=== PATIENT | female | born 1955 | race Caucasian/White ===

== ENCOUNTER → 2019-08-03 11:38 | Outpatient (CLI) | payer BC, SELFPAY ==
[2019-08-03 12:32] LABS: Add Manual Diff / Slide Review NO; Basophils Absolute Auto 0 /uL (0-100); Basophils Percent Auto 1.3 % (0-2); Eosinophils Absolute Auto 100 /uL (0-450); Eosinophils Percent Auto 1.6 % (2-4); Hematocrit 38.8 % (36-46); Hemoglobin 13.3 g/dL (12.0-16.0); Lymphocytes Absolute Auto 1300 /uL (1100-4500); Lymphocytes Percent Auto 38.1 % (25-40); Mean Corpuscular HGB Conc 34.4 % (30-36); Mean Corpuscular Hemoglobin 30.4 PG (26-34); Mean Corpuscular Volume 88.5 fL (80-100); Monocytes Absolute Auto 200 /uL (0-900); Monocytes Percent Auto 6.1 % (3-14); Neutrophils Absolute Auto 1900 /uL (1500-7000); Neutrophils Percent Auto 52.9 % (50-75); Platelet Count 235 X10^3/uL (150-400); Red Blood Cell Count 4.38 X10^6/uL (4.0-5.2); White Blood Cell Count 3.5 X10^3/uL (4.5-11.0)
[2019-08-03 12:45] LABS: Alanine Aminotransferase 22 IU/L (<35); Albumin 4.3 g/dL (3.5-5.0); Albumin Globulin Ratio 1.5 (1.0-2.8); Alkaline Phosphatase 69 U/L (38-126); Aspartate Aminotransferase 29 IU/L (14-36); BUN Creatinine Ratio 18.3 (6-22); Bilirubin Total 0.4 mg/dL (0.2-1.3); Blood Urea Nitrogen 11 mg/dL (7-17); Carbon Dioxide 25 mmol/L (22-32); Chloride 102 mmol/L (98-107); Cholesterol 216 mg/dL (140-199); Estimated Glomerular Filt Rate > 60.0 mL/min (>60); Globulin 2.8 g/dL (1.7-4.1); Glucose 81 mg/dL (80-110); HDL Cholesterol 68 mg/dL (40-60); HEMOLYSIS < 15 (0-50); LDL Cholesterol Calculated 134 mg/dL (<100); Potassium 4.3 mmol/L (3.4-5.1); Sodium 137 mmol/L (137-145); Total Protein 7.1 g/dL (6.3-8.2); Triglycerides 68 mg/dL (35-150)
[2019-08-03 13:08] LABS: Free T4, Direct Thyroxine 0.72 ng/dL (0.78-2.19)
[2019-08-03 13:34] LABS: Vitamin B12 452 pg/mL (239-931)
[2019-08-03 15:20] LABS: Vitamin D 25 Hydroxy (D3) 38.4 ng/mL (30.0-100.0)
== END ==
PROVIDERS: PCP Family Medicine; Visit Provider Family Medicine
DX: R10.9 Unspecified abdominal pain (principal); Z12.11 Encounter for screening for malignant neoplasm of colon; Z12.39 Encounter for other screening for malignant neoplasm of breast; Z12.4 Encounter for screening for malignant neoplasm of cervix; Z13.0 Encounter for screening for diseases of the blood and blood-forming organs and certain disorders involving the immune mechanism; Z13.220 Encounter for screening for lipoid disorders; Z13.29 Encounter for screening for other suspected endocrine disorder
CPT/HCPCS: 36415; 80053; 80061; 82306; 82607; 84439; 85025

== ENCOUNTER → 2020-01-07 09:17 | Outpatient (CLI) | payer BC, SELFPAY ==
[2020-01-08 08:47] LABS: COVID19 Sendout Not Detected (Not Detect)
== END ==
PROVIDERS: PCP Family Medicine; Visit Provider Physician Assistant
DX: Z01.812 Encounter for preprocedural laboratory examination (principal)
CPT/HCPCS: 87635

== ENCOUNTER 2020-01-09 09:25 | Day surgery (SDC) | payer BC, SELFPAY ==
--- NOTE | 2020-01-09 | PATH_ITS ---
[facility] Accession Number: [id number] . 01 Material submitted: . colon - ASCENDING COLON POLYP . 02 Diagnosis: Ascending Colon Polyp, Biopsy: Tubular adenoma. MRV 01/11/2020 1148 Local . 02 Electronically signed: . Flor Cortez MD, Pathologist NPI- [id number] . 01 Gross description: . ASCENDING COLON POLYP: Received in formalin is 1 fragment(s) of chavez, soft tissue measuring 0.3 x 0.3 x 0.2 cm submitted entirely in 1 cassette(s) /JUAN R 01/10/2020 1834 Local . 02 Pathologist provided ICD-10: D12.2 . 02 CPT . 837760 Performed at: 01 [facility] [address] [id number] MD Avila Mendoza MD Phone: [phone] Performed at: 02 [facility] [address] [place], [place] [id number] MD Flor Cortez MD Phone: [phone]
[2020-01-09] MEDS: LACTATED RINGERS 1,000 ML 200 ML IV (10:01)
[2020-01-09 10:02] VITALS: BMI 28.3
--- NOTE | 2020-01-09 10:25 | PM.HP.1 ---
History of Present Illness History of Present Illness Date Patient Seen: 01/09/20 Time Patient Seen: 10:08 Chief complaint: [id number] Narrative: The patient is a woman here for screening colonoscopy. Her last exam was little over 10 years ago. No family history colon cancer. Patient History Medical History Actinic keratoses (Acute) Acute neck pain (Acute) Ankle pain (Chronic ~2019) Cervical somatic dysfunction (Acute) Chicken pox (Resolved ~1962) Chronic left hip pain (Acute) Chronic pain of left ankle (Acute) Degenerative joint disease (DJD) of lumbar spine (Acute ~1999) Epigastric pain (Acute) Hay fever (Acute) Hearing loss (Chronic) Herpes (Acute ~2011) Iliotibial band syndrome affecting left lower leg (Acute) Low back pain potentially associated with radiculopathy (Acute) Numbness of right lower extremity (Acute) Onychomycosis (Acute) Pelvic somatic dysfunction (Acute) Segmental and somatic dysfunction of lumbar region (Acute) Segmental and somatic dysfunction of thoracic region (Acute) Shoulder pain (Chronic ~2014) Solar lentigo (Acute) Somatic dysfunction of abdominal region (Acute) Somatic dysfunction of lower extremity (Acute) Somatic dysfunction of rib (Acute) Somatic dysfunction of sacral spine (Acute) Vision disorder (Chronic) Surgical History History of colonoscopy (Acute ~2008) Family & Social History Family History Father Cancer Congestive heart failure Diabetes mellitus Hyperlipidemia Hypertension Mother Congestive heart failure Diabetes mellitus Hypertension Hyperlipidemia Brother Stroke Lymphedema Diabetes mellitus History of heart disease Hyperlipidemia Hypertension Sister Morbidly obese Thyroid condition Grandfather History of heart disease Grandfather History of heart disease Hypertension Hyperlipidemia Grandmother Cancer Social History: household members none Tobacco & Substance use: Smoking Status Former smoker alcohol intake current alcohol intake frequency a few times a week Substance Use Type does not use Meds Home Medications and Allergies Home Medications Medication Instructions Recorded Confirmed Type peg 3350-electrolytes 236 240 ml PO Q10M #4000 ml 01/02/20 01/09/20 Rx gram-22.74 gram-6.74 gram-5.86 gram solution Probiotic PO DAILY 01/09/20 History colostrum, bovine 500 mg PO DAILY 01/09/20 01/09/20 History multivitamin 1 tab PO DAILY 01/09/20 01/09/20 History Allergies Allergy/AdvReac Type Severity Reaction Status Date / Time ibuprofen Allergy Mild anaphylacti Verified 01/09/20 09:50 c Review of Systems Review of Systems Narrative: Chronic low back pain ROS: Yes All systems reviewed with the patient and are negative except as otherwise documented Exam Narrative Exam Narrative: Cooperative no apparent distress. Eyes nonicteric. Lungs are clear to auscultation without rales or rhonchi. Heart regular rate and rhythm without murmur gallop. Abdomen is flat soft nontender. She has a palpable mass in the area of her aorta but no bruit in it. I can hear her pulse go through it however. There is no turbulence appreciated though it, that is a bruit. Patient is alert and oriented x3. Assessment & Plan Assessment & Plan narrative: Patient is here for screening colonoscopy. I have discussed the procedure and the rationale with the patient including risks of bleeding, perforation which would necessitate a major operation, failure to find remove all lesions and the potential to tattoo. They appeared to understand and wished to proceed.
--- NOTE | 2020-01-09 10:36 | PM.PREOP ---
Pre-operative Note COVID-19 COVID-19 status: Negative Result date/Date tested (Pos, Neg/Pending): 01/07/20 Interval Note History & Physical reviewed/Exam performed by Physician: Yes Changes to H&P: No ASA Class (for procedural sedation): I
--- NOTE | 2020-01-09 11:05 | P.OP.ENDO_ITS ---
Operative Date/Time/Diagnoses Date of procedure: 01/09/20 Time of procedure: 11:05 Pre-op diagnosis: Screening examination. Last exam about 10 years ago. Post-op diagnosis: same (Small polyp in the ascending colon. Biopsied and removed.) Procedure & Clinicians Study performed: Colonoscopy with cold biopsy Same procedure as scheduled: Yes Indications: Screening for colon cancer Surgeon: Sohail Mueller Procedure Notes SCOAP/Timeout: Perform Procedure in detail: The patient was placed in the left lateral decubitus position and underwent IV sedation directed by the surgeon consisting of fentanyl and Versed. Digital exam was unremarkable. The scope was inserted and advanced through the rectum into the sigmoid, descending, transverse, and ascending colon. Her sigmoid was rather tortuous and there were some diver ticuli noted.. The cecum was reached identified by the ileocecal valve and the appendiceal opening. The scope was gradually brought out. One Polyp was found at the ascending colon near the flexure. It was tiny and was biopsied and removed. No other lesions were seen.. The scope ultimately was retroflexed in the rectum. The appearance was remarkable for some small hemorrhoids without ulceration. The scope was removed and the patient tolerated the procedure well. The prep was good. Scope withdrawal time: 9 minutes(10 total) Sedation minutes: 27 Findings: diverticulosis (Sigmoid), internal hemorrhoids (One small hemorrhoids seen. Do not recommend treatment unless it becomes problematic.) and polyp (One tiny ascending colon polyp) Specimen(s): other (Polyp) Complications: none Post-procedure Recommendations: Colonscopy in 5 years (Unless the polyp is not neoplastic(not adenomatous) in which case 10 years would be more appropriate for screening purposes.) Follow up: as needed Disposition: PACU
[2020-01-09] MEDS: MIDAZOLAM 5 MG/5 ML VIAL IV (11:07)
[2020-01-09] MEDS: fentaNYL 250 MCG/5 ML INJ IV (11:08)
[2020-01-09 11:13] VITALS: BP 111/67; PULSE 57; RESP 16; TEMP 36.2; O2SAT 97
[2020-01-09 11:18] VITALS: BP 111/70; PULSE 58; RESP 16; O2SAT 97
[2020-01-09 11:23] VITALS: BP 118/71; PULSE 55; RESP 18; O2SAT 97
[2020-01-09 11:30] VITALS: BP 123/79; PULSE 63; RESP 19; TEMP 36.3; O2SAT 98
[2020-01-09 11:37] VITALS: BP 116/74; PULSE 58; RESP 12; O2SAT 96
[2020-01-09 11:59] VITALS: BP 132/80; PULSE 62; RESP 15; TEMP 36.6; O2SAT 98
== END 2020-01-09 12:05 | disposition home or self-care (01) ==
PROVIDERS: PCP Family Medicine; Referring Provider Specialist; Visit Provider Specialist
PROC: 0DJD8ZZ Inspection of Lower Intestinal Tract, Via Natural or Artificial Opening Endoscopic (ICD-10-PCS; CPT 45378; principal; 2020-01-09 10:45)
DX: Z12.11 Encounter for screening for malignant neoplasm of colon (principal); K64.8 Other hemorrhoids; K57.30 Diverticulosis of large intestine without perforation or abscess without bleeding; D12.2 Benign neoplasm of ascending colon
CPT/HCPCS: 45380; 99152; 99153; J2250; J3010

== ENCOUNTER → 2020-01-10 09:17 | Outpatient (CLI) | payer BC, SELFPAY ==
--- NOTE | 2020-01-10 09:18 | DI.US.S_ITS ---
PROCEDURE: US ABD AORTA ANEURYSM SCREEN INDICATIONS: AAA SCREENING TECHNIQUE: Real time scanning was performed of the aorta and iliac arteries, with image documentation. COMPARISON: None. FINDINGS: Aorta: Proximal aortic diameter measures 2.5 cm. Mid-aorta measures 1.9 cm. Distal aortic diameter is 1.7 cm. Iliac arteries: Right common iliac artery measures 1.0 cm. Left common iliac artery measures 1.1 cm. IMPRESSION: Negative examination. No aneurysm identified Dictated by: Rj Fowler M.D. on 01/10/2020 at 10:09 Approved by: Rj Fowler M.D. on 01/10/2020 at 10:14
== END ==
PROVIDERS: PCP Family Medicine; Referring Provider Specialist; Visit Provider Specialist
DX: Z13.6 Encounter for screening for cardiovascular disorders (principal); I77.89 Other specified disorders of arteries and arterioles
CPT/HCPCS: 76706

== ENCOUNTER → 2020-01-16 16:38 | Outpatient (CLI) | payer BC, SELFPAY ==
--- NOTE | 2020-01-16 16:39 | DI.MG.S_ITS ---
BILATERAL DIGITAL SCREENING MAMMOGRAM 3D/2D WITH CAD: 01/16/2020 CLINICAL: Routine screening. Comparison is made to exams dated: 01/03/2016 mammogram and 07/30/2012 mammogram - outside location. The tissue of both breasts is heterogeneously dense. This may lower the sensitivity of mammography. Current study was also evaluated with a Computer Aided Detection (CAD) system. No significant masses, calcifications, or other findings are seen in either breast. There has been no significant interval change. IMPRESSION: NEGATIVE There is no mammographic evidence of malignancy. A 1 year screening mammogram is recommended. This exam was interpreted at Station ID: [id number]. NOTE: For mammograms, a report in lay terms will be sent to the patient. Approximately 15% of breast malignancies will not be visualized mammographically. In the management of a palpable breast mass, a negative mammogram must not discourage biopsy of a clinically suspicious lesion. Electronically Signed By: Nida roque/trevon:01/16/2020 17:12:11 letter sent: Normal Exam ACR BI-RADS Category 1: Negative 3341F
== END ==
PROVIDERS: PCP Family Medicine; Referring Provider Family Medicine; Visit Provider Family Medicine
DX: Z12.31 Encounter for screening mammogram for malignant neoplasm of breast (principal)
CPT/HCPCS: 77063; 77067

== ENCOUNTER → 2020-03-21 13:39 | Outpatient (CLI) | payer BC, SELFPAY ==
--- NOTE | 2020-03-21 | DI.RAD.S_ITS ---
PROCEDURE: XR PELVIS 1-2V INDICATIONS: LEFT HIP PAIN TECHNIQUE: Single view(s) of the pelvis acquired. COMPARISON: None. FINDINGS: Bones: No fracture. Mild bilateral hip joint degeneration. Lower lumbar spondylosis. Soft tissues: Visualized bowel gas pattern is normal. No suspicious soft tissue calcifications. IMPRESSION: Mild bilateral hip joint degeneration. Dictated by: Rj Fowler M.D. on 03/21/2020 at 14:40 Approved by: Rj Fowler M.D. on 03/21/2020 at 14:41
--- NOTE | 2020-03-21 | DI.RAD.S_ITS ---
PROCEDURE: XR LUMBAR SPINE 2-3V INDICATIONS: lt hip pain TECHNIQUE: 2 views of the lumbar spine were acquired. COMPARISON: None. FINDINGS: Bones: 5 [id number] vertebrae are present. There is normal bony alignment. No vertebral body compression fractures. No suspicious bony lesions. Note is made of a moderate degree of degenerative disc disease at L5-S1 and facet osteoarthritis is moderately severe at L4-5 and near severe at L5-S1. Soft tissues: Overlying bowel gas pattern is normal. No suspicious soft tissue calcifications. IMPRESSION: Degenerative disc disease and facet osteoarthritis present at L5-S1 likely is associated with appreciable spinal and foraminal stenosis. Foraminal stenosis also likely would be present at L4-5 given the degree of facet osteoarthritis present at that site. No compression fracture found. Dictated by: Peter Estrada M.D. on 03/21/2020 at 15:44 Approved by: Peter Estrada M.D. on 03/21/2020 at 15:46
--- NOTE | 2020-03-21 | DI.RAD.S_ITS ---
PROCEDURE: XR SACRUM COCCYX MIN 2V INDICATIONS: LEFT HIP PAIN TECHNIQUE: 3 views of the sacrum and coccyx acquired. COMPARISON: None. FINDINGS: Bones: No fractures or dislocations. No suspicious bony lesions. Lower lumbar spondylosis and facet arthropathy. Soft tissues: Visualized bowel gas pattern is normal. No suspicious soft tissue densities. IMPRESSION: Negative examination Dictated by: Rj Fowler M.D. on 03/21/2020 at 14:41 Approved by: Rj Fowler M.D. on 03/21/2020 at 14:42
== END ==
PROVIDERS: PCP Family Medicine; Referring Provider Chiropractor; Visit Provider Chiropractor
DX: M25.552 Pain in left hip (principal); M16.0 Bilateral primary osteoarthritis of hip; M47.816 Spondylosis without myelopathy or radiculopathy, lumbar region
CPT/HCPCS: 72100; 72170; 72220

== ENCOUNTER → 2020-10-01 12:24 | Outpatient (CLI) | payer BC, SELFPAY ==
[2020-10-01] MEDS: COVID-19 VACC #1, MRNA(MOD) 100 MCG/0.5 ML VIAL IM (12:32)
== END ==
PROVIDERS: PCP Family Medicine; Visit Provider Internal Medicine
DX: Z23 Encounter for immunization (principal)
CPT/HCPCS: 0011A; 91301

== ENCOUNTER → 2020-10-30 16:04 | Outpatient (CLI) | payer BC, SELFPAY ==
[2020-10-30] MEDS: COVID-19 VACC #2, MRNA(MOD) 100 MCG/0.5 ML VIAL IM (16:20)
== END ==
PROVIDERS: PCP Family Medicine; Visit Provider Internal Medicine
DX: Z23 Encounter for immunization (principal)
CPT/HCPCS: 0012A; 91301

== ENCOUNTER → 2021-01-13 13:33 | Outpatient (CLI) | payer BC, SELFPAY ==
[2021-01-13 15:26] LABS: COVID19 -Nasal RAPID Negative (Negative)
== END ==
PROVIDERS: PCP Family Medicine; Visit Provider Physician Assistant
DX: Z01.812 Encounter for preprocedural laboratory examination (principal); Z20.822 Contact with and (suspected) exposure to COVID-19
CPT/HCPCS: 87635

== ENCOUNTER 2021-01-14 12:27 | Outpatient (CLI) | payer BC, SELFPAY ==
[2021-01-14] VITALS (8 sets, daily range): BP systolic 93–120; BP diastolic 56–75; PULSE 63–72; RESP 10–21; TEMP 36.3; O2SAT 98–100
--- NOTE | 2021-01-14 12:28 | DI.RAD.S_ITS ---
PROCEDURE: PAIN SI JOINT INJECTION INDICATIONS: SACROILIAC JOINT DISORDER COMPARISON: None. FINDINGS: Fluoroscopic spot filming was performed to verify placement of spinal needles overlying the left SI joint as labeled on the films. Appropriate location(s) of the needle tip(s) was confirmed by injection of iodinated contrast. IMPRESSION: Needle placement overlying the left SI joint. Dictated by: Amelia Mathews M.D. on 01/14/2021 at 17:18 Approved by: Amelia Mathews M.D. on 01/14/2021 at 17:18
[2021-01-14] MEDS: fentaNYL 100 MCG/2 ML INJ 50 MCG IV (13:21)
[2021-01-14] MEDS: IOPAMIDOL 15 ML VIAL 3 ML INJ (13:24)
[2021-01-14] MEDS: MIDAZOLAM 5 MG/5 ML VIAL IV (13:24)
[2021-01-14] MEDS: BETAMETHASONE 30 MG/5 ML MDV 12 MG INJ (13:27)
[2021-01-14] MEDS: BUPIVACAINE 0.5% (PF) VIAL 2 ML INJ (13:27)
--- NOTE | 2021-01-14 13:36 | P.PCN_ITS ---
Date/Time/Diagnoses Date of procedure: 01/14/21 Time of procedure: 13:36 Pre-procedure diagnosis: Sacroiliac Joint Pain/DJD Post-procedure diagnosis: same Procedure Notes Procedure: Fluoroscopically guided contrast controlled left sacroiliac joint injection Indications: Sue is referred by Dr. Brooke for treatment of left sacroiliac joint DJD Physician: Dc Brooke Total Fluoroscopy time (seconds): 9 Total sedation minutes: 11 Complications: none Procedure in detail & Post-procedure care: DESCRIPTION OF PROCEDURE Fluoroscopic guided, contrast controlled left sacroiliac joint injection Following review of allergies and review of potential side effects and complications, including, but not necessarily limited to, infection, allergic reaction, local tissue breakdown, temporary as well as permanent nerve injury, paralysis, stroke and possible , the patient indicated that they understood and agreed to proceed. An informed consent was signed by the patient, witnessed by a nurse, and placed in the patient's chart. Additionally, other treatment options including modalities, medications, and physical therapy were reviewed with the patient. After review of previous anaesthesic history and IV conscious sedation the patient was deemed safe to proceed with today?s procedure with IV conscious sedation as ASA class II designation. Safety time-out was performed to confirm patient ID, procedure to be performed and site of procedure. IV sedation was accomplished with a combination of 3mg of Versed and 50mcg of Fentanyl administered by the RN after DO order, titrated to patient comfort during the course of the procedure while the patient remained responsive to all verbal commands. In the prone position following sterile prep and drape of the pelvic region, the hyper lucency on in the inferior aspect of the left sacroiliac joint was identified fluoroscopically the skin was anesthetized be a 25 gauge 1 eventual with approximately 2cc of 1% lidocaine solution. At this point, a 22 gauge 3 inch spinal needle was atraumatically introduced and advanced under fluoroscopic guidance into the inferior aspect of the left sacroiliac joint. Following negative aspiration, approximately 0.3cc of Isovue-300 was injected confirming intra-articular placement without vascular uptake. Radiographic data, including multiple fluoroscopic views of the pelvis, reveals a spinal needle in the left sacroiliac joint hyper lucent zone. Subsequent view show flow contrast tear superiorly and inferiorly within the joint capsule without vascular intrathecal uptake. At this point a total of 1cc or 0.5% Marcaine was combined with 1cc of 6mg of betamethasone was injected without incident. The patient tolerated the procedure well without signs or symptoms of complications prior to transfer to the recovery area for further monitoring. The patient was then transferred to the recovery area with a bur observed for an appropriate time after the injection. The patient reverted a vas score of 7 prior to the procedure and postprocedure vas of 1. POSTOP INSTRUCTIONS The patient was provided with a pain like to continue to record the patient's response to the target specific procedure prior to the patient's follow-up visit with the referring physician. Additionally, specific post injection care instructions and a contact number to our office were provided if concerns arise regarding the possible complications associated with procedure are suspected.
== END 2021-01-14 13:59 | disposition home or self-care (01) ==
LOC: RAD 12:28
PROVIDERS: PCP Family Medicine; Referring Provider Physical Medicine & Rehabilitation; Visit Provider Physical Medicine & Rehabilitation
DX: M53.3 Sacrococcygeal disorders, not elsewhere classified (principal); M46.1 Sacroiliitis, not elsewhere classified
CPT/HCPCS: 27096; 99152; J0702; J2250; J3010

== ENCOUNTER → 2021-06-10 17:36 | Outpatient (CLI) | payer BC, SELFPAY ==
--- NOTE | 2021-06-10 | DI.MG.S_ITS ---
BILATERAL DIGITAL SCREENING MAMMOGRAM 3D/2D WITH CAD: 06/10/2021 CLINICAL: Routine screening. Comparison is made to exams dated: 01/16/2020 mammogram - [facility] and 06/21/2017 ultrasound - outside location. The tissue of both breasts is heterogeneously dense. This may lower the sensitivity of mammography. Current study was also evaluated with a Computer Aided Detection (CAD) system. No significant masses, calcifications, or other findings are seen in either breast. There has been no significant interval change. IMPRESSION: NEGATIVE There is no mammographic evidence of malignancy. A 1 year screening mammogram is recommended. This exam was interpreted at Station ID: [id number]. NOTE: For mammograms, a report in lay terms will be sent to the patient. Approximately 15% of breast malignancies will not be visualized mammographically. In the management of a palpable breast mass, a negative mammogram must not discourage biopsy of a clinically suspicious lesion. Electronically Signed By: Douglas mckeon/trevon:06/11/2021 09:53:08 letter sent: Normal Exam ACR BI-RADS Category 1: Negative 3341F
== END ==
PROVIDERS: PCP Family Medicine; Referring Provider Internal Medicine; Visit Provider Internal Medicine
DX: Z12.31 Encounter for screening mammogram for malignant neoplasm of breast (principal)
CPT/HCPCS: 77063; 77067

== ENCOUNTER → 2021-09-04 17:39 | Outpatient (CLI) | payer BC, SELFPAY ==
--- NOTE | 2021-09-04 17:40 | DI.MRI.S_ITS ---
PROCEDURE: MR LUMBAR SPINE WO CON INDICATIONS: Left L5 radiculopathy TECHNIQUE: Noncontrast sagittal T1 spin echo and T2 fast echo, sagittal STIR, axial T1 and T2 fast spin echo through the lumbar spine. In cases with scoliosis, additional coronal T2 fast spin echo may be performed. COMPARISON: [facility], CR, XR LUMBAR SPINE 2-3V, 03/21/2020, 12:49. FINDINGS: Image quality: Excellent. Alignment and Curvature: There is normal bony alignment. Bone Marrow: Marrow is of normal overall signal. No acute vertebral body compression fractures. Spinal Cord: Conus medullaris terminates at the L1-L2 level. Visualized cord demonstrates normal signal and size. Paraspinous Soft Tissues: No paravertebral masses. T12-L1: Mild disc bulge. No canal stenosis or foraminal stenosis. L1-L2: Disc bulge. Facet hypertrophy. No canal stenosis or foraminal stenosis. L2-L3: Disc bulge. Mild facet hypertrophy. No canal stenosis or foraminal stenosis. L3-L4: Disc bulge. Facet and ligament hypertrophy. Mild canal stenosis. Mild bilateral foraminal stenosis. L4-L5: Moderate diffuse disc bulge. Facet and ligament hypertrophy. Mild canal stenosis. Mild right foraminal stenosis. L5-S1: Moderately severe disc height loss. Minimal posterior disc bulge. Facet hypertrophy. No canal stenosis or significant foraminal stenosis. IMPRESSION: 1. Diffuse degenerative change with multilevel facet arthropathy. 2. Canal stenosis is mild at L3-L4 and mild at L4-L5. Dictated by: Asim Sauceda M.D. on 09/04/2021 at 20:24 Approved by: Asim Sauceda M.D. on 09/04/2021 at 20:29
== END ==
PROVIDERS: PCP Family Medicine; Referring Provider Physical Medicine & Rehabilitation; Visit Provider Physical Medicine & Rehabilitation
DX: M47.26 Other spondylosis with radiculopathy, lumbar region (principal); M47.27 Other spondylosis with radiculopathy, lumbosacral region; M48.061 Spinal stenosis, lumbar region without neurogenic claudication; M99.03 Segmental and somatic dysfunction of lumbar region
CPT/HCPCS: 72148

== ENCOUNTER → 2021-09-17 12:33 | Outpatient (CLI) | payer BC, SELFPAY ==
--- NOTE | 2021-09-17 12:34 | DI.RAD.S_ITS ---
PROCEDURE: XR HIP W PEL IF DONE CRUZ MIN 4V INDICATIONS: Left hip DJD TECHNIQUE: AP pelvis with lateral view(s) of the right and left hip(s). COMPARISON: None. FINDINGS: Bones: No fractures or dislocations. Pelvic ring appears intact. No suspicious bony lesions. Mild right hip osteoarthritis and moderate left hip osteoarthritis. Soft tissues: The visualized bowel gas pattern is normal. No suspicious soft tissue calcifications. IMPRESSION: 1. Moderate left hip osteoarthritis. 2. Mild right hip osteoarthritis. Dictated by: Stephania Read MD, PhD on 09/17/2021 at 15:15 Approved by: Stephania Read MD, PhD on 09/17/2021 at 15:16
== END ==
PROVIDERS: PCP Family Medicine; Referring Provider Physical Medicine & Rehabilitation; Visit Provider Physical Medicine & Rehabilitation
DX: M16.0 Bilateral primary osteoarthritis of hip (principal)
CPT/HCPCS: 73522

== ENCOUNTER → 2022-01-05 11:09 | Outpatient (CLI) | payer BC, SELFPAY ==
[2022-01-05 12:21] LABS: COVID19 -Nasal RAPID Negative (Negative)
== END ==
PROVIDERS: PCP Family Medicine; Visit Provider Physical Medicine & Rehabilitation
DX: Z20.822 Contact with and (suspected) exposure to COVID-19 (principal)
CPT/HCPCS: 87635; C9803

== ENCOUNTER 2022-01-06 14:59 | Outpatient (CLI) | payer BC, SELFPAY ==
[2022-01-06] VITALS (11 sets, daily range): BP systolic 116–162; BP diastolic 73–95; PULSE 60–70; RESP 12–21; TEMP 36.4; O2SAT 97–100
--- NOTE | 2022-01-06 15:01 | DI.RAD.S_ITS ---
PROCEDURE: PAIN L/S TRANSFORAMINAL INJECT INDICATIONS: SPONDYLOSIS COMPARISON: None. FINDINGS: Fluoroscopic spot filming was performed to verify placement of spinal needles at the left L4-L5 neural foramen level(s), as labeled on the films. Appropriate location(s) of the needle tip(s) was confirmed by injection of iodinated contrast. IMPRESSION: Accessing with a left L4-L5 neural foramen for transforaminal epidural right steroid injection. Dictated by: Stephania Read MD, PhD on 01/06/2022 at 16:57 Approved by: Stephania Read MD, PhD on 01/06/2022 at 16:57
[2022-01-06] MEDS: MIDAZOLAM 2 MG/2 ML VIAL 4 MG IV (16:21)
[2022-01-06] MEDS: IOPAMIDOL 15 ML VIAL 3 ML INJ (16:28)
[2022-01-06] MEDS: BUPIVACAINE 0.25% (PF) VIAL 2 ML INJ (16:28)
[2022-01-06] MEDS: BETAMETHASONE 30 MG/5 ML MDV 6 MG INJ (16:29)
[2022-01-06] MEDS: DEXAMETHASONE 10 MG/ML VIAL 20 MG INJ (16:31)
--- NOTE | 2022-01-06 16:40 | P.PCN_ITS ---
Date/Time/Diagnoses Date of procedure: 01/06/22 Time of procedure: 16:40 Pre-procedure diagnosis: 1. FORAMINAL STENOSIS WITH LE SYMPTOMS Post-procedure diagnosis: same Procedure Notes Procedure: 1. FLUOROSCOPICALLY GUIDED CONTRAST CONTROLLED TRANSFORAMINAL EPIDURAL STEROID INJECTION - LEFT L4/5 Indications: Sue is referred by Dr. Brooke for treatment of Foraminal Stenosis with Left LE Symptoms Physician: Dc Brooke Total Fluoroscopy time (seconds): 11 Total sedation minutes: 16 Complications: none Procedure in detail & Post-procedure care: FINDINGS Foraminal Nerve Root Compression secondary to disc disease and facet hypertrophy DESCRIPTION OF PROCEDURE Following review of allergy and review of potential side effects and complications, including, but not necessarily limited to, infection, allergic reaction, local tissue breakdown, stroke, temporary or permanent nerve injury, paralysis, and possible , the patient indicated that the patient understood and agreed to proceed. An informed consent document was signed by the patient, witnessed by a nurse, and placed in the patient's chart. Additionally, other treatment options including medications, modalities, and physical therapy were reviewed with the patient. After review of previous anaesthesic history and IV conscious sedation the patient was deemed safe to proceed with today?s procedure with IV conscious sedation as ASA class II designation. Safety time-out was performed to confirm patient ID, procedure to be performed and site of procedure. IV sedation was accomplished with a combination of 4mg of Versed administered by the RN after DO order, titrated to patient comfort during the course of the procedure while the patient remained responsive to all verbal commands In the prone position following sterile prep and drape of the lumbar region, the left L4/5 posterior neuroforamen was identified fluoroscopically. The skin was anesthetized via a 25-gauge 1.5-inch needle with 1% lidocaine solution. At this point, a 25-gauge 3.5-inch spinal needle was atraumatically introduced and advanced under fluoroscopic guidance through the posterior left L4/5 neuroforamen to approximately the anterior aspect of the canal. Depth was confirmed on lateral view. Following negative aspiration, injection of approximately 1.5 cc of Isovue 200 under live fluoroscopy in the AP view confirmed excellent flow along the nerve root, into the epidural space without vascular or intrathecal uptake observed Radiological data, including multiple fluoroscopic views of the lumbosacral spine, reveal a spinal needle at the left L4/5 posterior neuroforamen. Subsequent views show flow of contrast material flowing superiorly and inferiorly along the nerve root confirming epidural flow. Subsequently, a test dose of 1.5 cc of 1% lidocaine solution was administered and patient was observed for two minutes for signs or symptoms of complications, including abdominal pain, shortness of breath, bilateral upper or lower extremity weakness, nausea and vomiting, prior to steroid injection. At this point, a total of 3cc or 20mg of dexamethasone and 6mg of betamethasone was injected without incident. The procedure tolerated the procedure well without signs or symptoms of complications prior to transfer to the recovery area continued monitoring without incident. The patient was then transferred to the recovery area where they were observed for an appropriate time after the injection. The patient reported a VAS score of 7 prior to the procedure and a post- procedure VAS of 0. POST OP INSTRUCTIONS The patient was provided a Pain Log to continue to record their response to the target-specific procedure prior to follow-up visit with their referring physician. Additionally, specific post-injection care instructions and a contact number to our office were provided if concerns arise regarding possible complications associated with the procedure are suspected.
== END 2022-01-06 17:14 | disposition home or self-care (01) ==
LOC: RAD 15:01
PROVIDERS: PCP Family Medicine; Referring Provider Physical Medicine & Rehabilitation; Visit Provider Physical Medicine & Rehabilitation
DX: M48.061 Spinal stenosis, lumbar region without neurogenic claudication (principal); M51.16 Intervertebral disc disorders with radiculopathy, lumbar region
CPT/HCPCS: 64483; 99152; J0702; J1100; J2250

== ENCOUNTER → 2022-08-10 08:05 | Outpatient (CLI) | payer MEDICARE, SELFPAY ==
[2022-08-10 09:10] LABS: Add Manual Diff / Slide Review NO; Basophils Absolute Auto 100 /uL (0-100); Basophils Percent Auto 1.6 % (0-2); Eosinophils Absolute Auto 100 /uL (0-450); Eosinophils Percent Auto 3.6 % (2-4); Hematocrit 38.6 % (36-46); Hemoglobin 12.9 g/dL (12.0-16.0); Lymphocytes Absolute Auto 1700 /uL (1100-4500); Lymphocytes Percent Auto 52.5 % (25-40); Mean Corpuscular HGB Conc 33.5 % (30-36); Mean Corpuscular Hemoglobin 29.6 PG (26-34); Mean Corpuscular Volume 88.4 fL (80-100); Monocytes Absolute Auto 200 /uL (0-900); Monocytes Percent Auto 6.7 % (3-14); Neutrophils Absolute Auto 1200 /uL (1500-7000); Neutrophils Percent Auto 35.6 % (50-75); Platelet Count 235 X10^3/uL (150-400); Red Blood Cell Count 4.36 X10^6/uL (4.0-5.2); Red Cell Distribution Width 13.7 % (11.6-14.8); White Blood Cell Count 3.3 X10^3/uL (4.5-11.0)
[2022-08-10 09:16] LABS: Alanine Aminotransferase 20 IU/L (<35); Albumin 4.3 g/dL (3.5-5.0); Albumin Globulin Ratio 1.5 (1.0-2.8); Alkaline Phosphatase 101 U/L (38-126); Aspartate Aminotransferase 23 IU/L (14-36); BUN Creatinine Ratio 23.3 (6-22); Bilirubin Total 0.4 mg/dL (0.2-1.3); Blood Urea Nitrogen 14 mg/dL (7-17); Calcium 8.7 mg/dL (8.4-10.2); Carbon Dioxide 25 mmol/L (22-32); Chloride 105 mmol/L (98-107); Cholesterol 227 mg/dL (140-199); Estimated Glomerular Filt Rate > 60 mL/min (>60); Globulin 2.8 g/dL (1.7-4.1); Glucose 97 mg/dL (80-110); HDL Cholesterol 63 mg/dL (40-60); HEMOLYSIS < 15 (0-50); LDL Cholesterol Calculated 147 mg/dL (<100); Potassium 4.3 mmol/L (3.4-5.1); Sodium 139 mmol/L (137-145); Total Protein 7.1 g/dL (6.3-8.2); Triglycerides 83 mg/dL (35-150)
[2022-08-10 09:46] LABS: TSH w/ Reflex to FT4 4.48 uIU/mL (0.47-4.68)
== END ==
PROVIDERS: PCP Family Medicine; Referring Provider Family Medicine; Visit Provider Family Medicine
DX: Z00.00 Encounter for general adult medical examination without abnormal findings (principal); R42 Dizziness and giddiness; R79.89 Other specified abnormal findings of blood chemistry; H93.19 Tinnitus, unspecified ear; Z13.1 Encounter for screening for diabetes mellitus; Z13.220 Encounter for screening for lipoid disorders
CPT/HCPCS: 36415; 80053; 80061; 83036; 84443; 85025

== ENCOUNTER → 2023-05-27 10:15 | Outpatient (CLI) | payer MEDICARE, SELFPAY ==
[2023-05-27 11:21] LABS: BUN Creatinine Ratio 24.7 (6-22); Blood Urea Nitrogen 18 mg/dL (7-17); Calcium 8.9 mg/dL (8.4-10.2); Carbon Dioxide 31 mmol/L (22-32); Chloride 102 mmol/L (98-107); Cholesterol 191 mg/dL (140-199); Estimated Glomerular Filt Rate > 60 mL/min (>60); Glucose 94 mg/dL (80-110); HDL Cholesterol 46 mg/dL (40-60); HEMOLYSIS < 15 (0-50); LDL Cholesterol Calculated 132 mg/dL (<100); Potassium 4.7 mmol/L (3.4-5.1); Sodium 137 mmol/L (137-145); Triglycerides 64 mg/dL (35-150)
== END ==
PROVIDERS: PCP Family Medicine; Referring Provider Family Medicine; Visit Provider Family Medicine
DX: E78.5 Hyperlipidemia, unspecified (principal)
CPT/HCPCS: 36415; 80048; 80061

== ENCOUNTER → 2024-11-17 15:08 | Outpatient (CLI) | payer MEDICARE, SELFPAY ==
[2024-11-17 19:52] LABS: Influenza A - CEPHEID Flu A NEGATIVE (NEGATIVE); Influenza B - CEPHEID Flu B NEGATIVE (NEGATIVE); Respiratory Syncytial Virus Negative (Negative)
[2024-11-17 19:54] LABS: COVID-19 CEPHEID 4-PLEX PCR Negative (Negative)
== END ==
PROVIDERS: PCP Family Medicine; Visit Provider Family Medicine
DX: R05.9 Cough, unspecified (principal); E78.5 Hyperlipidemia, unspecified
CPT/HCPCS: 0241U

== ENCOUNTER → 2024-11-22 12:10 | Outpatient (CLI) | payer MEDICARE, SELFPAY ==
[2024-11-22 13:36] LABS: Alanine Aminotransferase 28 IU/L (<35); Albumin 4.4 g/dL (3.5-5.0); Albumin Globulin Ratio 1.7 (1.0-2.8); Alkaline Phosphatase 77 U/L (38-126); Aspartate Aminotransferase 31 IU/L (14-36); BUN Creatinine Ratio 19.7 (6-22); Bilirubin Total 0.5 mg/dL (0.2-1.3); Blood Urea Nitrogen 13 mg/dL (7-17); Calcium 9.1 mg/dL (8.4-10.2); Carbon Dioxide 28 mmol/L (22-32); Chloride 102 mmol/L (98-107); Cholesterol 195 mg/dL (140-199); Estimated Glomerular Filt Rate > 60 mL/min (>60); Globulin 2.6 g/dL (1.7-4.1); Glucose 83 mg/dL (70-99); HDL Cholesterol 47 mg/dL (40-60); HEMOLYSIS < 15 (0-50); LDL Cholesterol Calculated 131 mg/dL (<100); Potassium 5.2 mmol/L (3.4-5.1); Sodium 136 mmol/L (137-145); Triglycerides 83 mg/dL (35-150)
[2024-11-23 15:57] LABS: Hep C Virus Ab w/Reflex Quant NEGATIVE s/c (NEGATIVE)
== END ==
LOC: LAB 12:11
PROVIDERS: PCP Family Medicine; Referring Provider Family Medicine; Visit Provider Family Medicine
DX: E78.5 Hyperlipidemia, unspecified (principal); R05.9 Cough, unspecified
CPT/HCPCS: 36415; 80053; 80061; 86803

== ENCOUNTER → 2024-11-24 16:51 | Outpatient (CLI) | payer MEDICARE, SELFPAY ==
--- NOTE | 2024-11-24 16:53 | DI.MG.S_ITS ---
MM screening mammo BI: 11/24/2024. BI-RADS: 1 CLINICAL: 68-year old female for bilateral screening mammogram. Tyrer-Cuzick lifetime risk of 8.2%. No personal or first-degree family history of breast cancer. The patient had a prior left breast biopsy. PRIOR EXAMS 06/10/2021, 01/16/2020. MAMMOGRAPHY TECHNIQUE: 2D and 3D (tomosynthesis) digital mammographic views obtained, with additional images as needed for full coverage. Current study was also evaluated with a Computer Aided Detection (CAD) system. DENSITY C. The breasts are heterogeneously dense, which may obscure small masses. MAMMOGRAPHY FINDINGS Bilateral: No suspicious mass, asymmetry, microcalcification, or other abnormality seen. IMPRESSION: * No evidence of malignancy. RECOMMENDATIONS Bilateral * Annual screening mammography. OVERALL ASSESSMENT CATEGORY BI-RADS-1: Negative. [employer] recommends annual screening mammography beginning at age 40 for women with average risk of breast cancer. ELECTRONICALLY SIGNED: Michael Moya M.D. on 11/25/2024 at 09:20:34 PM PT Interpreting Station ID: [id number]
[2024-11-24 17:58] LABS: HEMOLYSIS < 15 (0-50); Potassium 5.1 mmol/L (3.4-5.1)
== END ==
LOC: MAMMO 16:52
PROVIDERS: PCP Family Medicine; Referring Provider Family Medicine; Visit Provider Family Medicine
DX: Z12.31 Encounter for screening mammogram for malignant neoplasm of breast (principal); E87.5 Hyperkalemia; R92.333 Mammographic heterogeneous density, bilateral breasts
CPT/HCPCS: 36415; 77063; 77067; 84132